=== PATIENT | male | born 1985 | race Caucasian/White ===

== ENCOUNTER 2017-10-29 07:13 | Emergency (ER) | payer OTHER ==
[~2017-10-29] VITALS: Ht 172.7 cm; Wt 62.7 kg
[~2017-10-29 07:13] MED LIST: AMOXICILLIN 50500 MG PO; CEPHALEXIN500 M1 PO; FLEXERIL 1010 MG/TAB PO; LORTAB 5/500 501 TAB PO; MEDROL 4MG DOSPA4 MG PO; MULTI VITAMINS1 TAB PO; NAPROSYN500 MG PO; NO HOME MEDICATIONS; NORCO 325 MG-51 TAB; NORCO 325 MG-51 TAB PO; NORCO 325 MG-7.1 TAB PO; PEN-VEE K500 MG PO; ULTRAM 50MG TAB50 MG PO
[2017-10-29 07:15] VITALS: BP 146/88; TEMP 97.7
[2017-10-29 08:07] VITALS: PULSE 99
== END 2017-10-29 08:07 | disposition home or self-care (01) ==
LOC: COL.ER 07:13
DX: S61.012A Laceration without foreign body of left thumb without damage to nail, initial encounter (principal); F17.210 Nicotine dependence, cigarettes, uncomplicated; W26.8XXA Contact with other sharp object(s), not elsewhere classified, initial encounter

== ENCOUNTER 2019-01-10 15:19 | Emergency (ER) | payer OTHER ==
[~2019-01-10] VITALS: Ht 172.7 cm; Wt 62.7 kg
[2019-01-10 15:36] VITALS: BP 125/72; TEMP 98.2
[2019-01-10] MEDS ORDERED: NAPROSYN500 MG PO (15:36)
[2019-01-10] MEDS ORDERED: NORCO 325 MG-51 TAB PO (16:15)
[2019-01-10] MEDS ORDERED: MEDROL 4MG DOSPA4 MG PO (16:15)
[2019-01-10 16:31] VITALS: PULSE 100
== END 2019-01-10 16:31 | disposition home or self-care (01) ==
LOC: COL.ER 15:19
DX: S43.401A Unspecified sprain of right shoulder joint, initial encounter (principal); F17.210 Nicotine dependence, cigarettes, uncomplicated; Z88.5 Allergy status to narcotic agent; X50.0XXA Overexertion from strenuous movement or load, initial encounter; Y92.59 Other trade areas as the place of occurrence of the external cause

== ENCOUNTER 2020-09-04 19:09 | Observation (INO) | payer SELFPAY ==
[~2020-09-04] VITALS: Ht 172.7 cm; Wt 65.0 kg
[2020-09-04] VITALS (125 sets, daily range): BP systolic 111–120; BP diastolic 69–78; PULSE 93–104; TEMP 97.2; O2SAT 92–97
[2020-09-04 19:46] LABS: ALANINE AMINOTRANSFERASE 20 U/L (4-49); ALCOHOL(ethanol),MEDICAL 265 mg/dL; ALKALINE PHOSPHATASE 66 U/L (50-136); ANION GAP 12 mmol/L (7-16); AST,SGOT 43 U/L (15-37); BILIRUBIN,TOTAL 0.2 mg/dL (0.0-1.0); BLOOD UREA NITROGEN 8 mg/dL (9-20); CALCIUM 8.1 mg/dL (8.4-10.2); CARBON DIOXIDE 23 mmol/L (22-30); CHLORIDE 105 mmol/L (98-107); CREATININE, serum 0.86 (0.66-1.25); GLUCOSE 101 mg/dL (74-106); LIPASE 299 U/L (23-300); MAGNESIUM 2.2 mg/dL (1.6-2.3); POTASSIUM 3.4 mmol/L (3.4-5.0); SODIUM 139 mmol/L (137-145); TOTAL PROTEIN 6.7 gm/dL (6.4-8.2)
[2020-09-04 19:48] LABS: SALICYLATE < 1.0 mg/dL
[2020-09-04 19:52] LABS: BASO % 0.7 % (0.0-2.0); EOS % 0.2 % (0-4.0); GRAN # 3.6 (1.4-6.5); HEMATOCRIT 39.7 % (42.0-52.0); HEMOGLOBIN 13.8 g/dl (13.5-18.0); LYMPH # 1.4 (1.2-3.4); LYMPH % 25.3 % (20.0-51.0); MEAN CELL VOLUME 94 fl (80.0-100.0); MEAN CORPUSCULAR HEMOGLOBIN 33 pg (27.0-31.0); MEAN CORPUSCULAR HGB CONC 35 g/dl (33.0-37.0); MEAN PLATELET VOLUME 8.9 fl (7.4-10.4); MONO # 0.5 (0.1-0.6); MONO % 9.6 % (1.7-9.3); PLATELET COUNT 226 K/mm3 (130-400); RED BLOOD COUNT 4.23 M/mm3 (4.20-5.60); REDCELL DISTRIBUTION WIDTH-CV 12.3 % (11.5-14.5)
[2020-09-04 19:55] LABS: INR 0.9 (0.8-3.0)
[2020-09-04 19:57] LABS: TROPONIN-I < 0.012 ng/mL (0.000-0.035)
[2020-09-04 20:59] LABS: COLLECTION METHOD CLEAN CATCH
[2020-09-04 21:10] LABS: PH 6 (5-8); SQUAMOUS EPITHELIAL None Seen /hpf; URINE APPEARANCE Clear; URINE BACTERIA None Seen /hpf; URINE BILIRUBIN Negative (NEGATIVE); URINE BLOOD Negative (NEGATIVE); URINE COLOR Straw; URINE GLUCOSE Negative (NEGATIVE); URINE KETONE Negative (NEGATIVE); URINE LEUKOCYTE ESTERASE Negative (NEGATIVE); URINE NITRATE Negative (NEGATIVE); URINE PROTEIN(semi-quant) Negative (NEGATIVE); URINE RBC 0-2 /hpf; URINE UROBILINOGEN Negative (NEGATIVE)
[2020-09-04 21:15] LABS: TRICYCLIC ANTIDEPRESS URINE POSITIVE
--- NOTE | 2020-09-04 21:21 | NUR ---
Patient arrived to ICU 5 at 2105. Assessment complete and charted. Patient alert to self, following directions and answering simple questions only. Patient has pin point pupils-reactive. Patient on suicide precautions- sweep done per protocol. Patient currently on ICU monitoring. Has IVF running at 200ml/hr per verbal order from YOGESH Harrell. Attempted to complete Med rec. However patients next of kin listed, Emily, is currently admitted to this hospital also per patient Aunt Petros. Per Petros, reports she spoke with ED doctor earlier in evening, and provided ED doctor information needed. "As far as family knows, patient is not on any prescription medications, but not completely sure." Patient in bed with bed alarms on, in hollingsworth gown.
--- NOTE | 2020-09-04 21:30 | NUR ---
Brien for posion control called to review labs and EKG. Would like tylenol level ordered. Will check with YOGESH Harrell
--- NOTE | 2020-09-04 23:56 | NUR ---
Posion controlled called for updates. Updated provided. Suggested watch for seizure activity with ingestion of seroquel. Will follow up in AM
[2020-09-05] VITALS (618 sets, daily range): BP systolic 104–124; BP diastolic 60–85; PULSE 73–100; TEMP 97.5–98; O2SAT 85–98
--- NOTE | 2020-09-05 00:03 | NUR ---
Resting in bed asleep. Follows commands for assessment. Alert to self. Mubbled speech. IV site left AC, CDI.
--- NOTE | 2020-09-05 04:01 | NUR ---
Assessment complete and charted. Patient more alert. Able to state place, time, and name/. Provided with water at this time.
[2020-09-05 06:01] LABS: BASO % 0.7 % (0.0-2.0); EOS # 0.1 (0.0-0.7); EOS % 1.5 % (0-4.0); GRAN # 2.6 (1.4-6.5); GRAN % 57.3 % (42.2-75.2); HEMOGLOBIN 12.2 g/dl (13.5-18.0); LYMPH # 1.3 (1.2-3.4); LYMPH % 29.2 % (20.0-51.0); MEAN CELL VOLUME 98 fl (80.0-100.0); MEAN CORPUSCULAR HEMOGLOBIN 33 pg (27.0-31.0); MEAN CORPUSCULAR HGB CONC 34 g/dl (33.0-37.0); MONO # 0.5 (0.1-0.6); MONO % 11.1 % (1.7-9.3); PLATELET COUNT 184 K/mm3 (130-400); RED BLOOD COUNT 3.68 M/mm3 (4.20-5.60); REDCELL DISTRIBUTION WIDTH-CV 12.6 % (11.5-14.5)
[2020-09-05 06:12] LABS: HEMATOCRIT 35.9 % (42.0-52.0)
[2020-09-05 06:16] LABS: CALCIUM 7.1 mg/dL (8.4-10.2); CREATININE, serum 0.8 (0.66-1.25); MAGNESIUM 1.9 mg/dL (1.6-2.3); POTASSIUM 3.7 mmol/L (3.4-5.0)
--- NOTE | 2020-09-05 06:29 | NUR ---
Patient on suicide precautions throughout night. Increased alertness this morning. Reports "yesterday is a blur." Wanting to know how long admission would be required. Educated patient regarding physician rounding this AM. Denies questions. Patient asked to urinate. Denied need to urinate. Bladder scanned, 585. After bladder was scanned patient reported need to urinate. Patient urinated 600ml of dark yellow clear urine.
--- NOTE | 2020-09-05 07:14 | NUR ---
Report given to TOÑA Smith
--- NOTE | 2020-09-05 07:30 | NUR ---
Upon entering PT room this am for introduction, PT opened his eyes looked at nurses and turned away and gave a thumbs up. No verbal communication was given.
--- NOTE | 2020-09-05 08:03 | NUR ---
During morning assessment, PT agrees to eat breakfast and to let an assessment to be performed. PT refuses lovenox as he does not want a shot. When asked whye he was in hospital, PT states, "becaue I OD's", when asked about what he said to his sister in a text. PT mumbled and did not continue to answer. PT appears to have a good appetite. Q15 minute checks continue.
--- NOTE | 2020-09-05 08:48 | NUR ---
pt DENIES suicidal ideation this am.
--- NOTE | 2020-09-05 13:14 | NUR ---
First visit from the analytical data scientist. Chaplain thompsond for patient while standing outside their door.
--- NOTE | 2020-09-05 17:45 | NUR ---
PT given education, IV discontinued and patient removed from monitor. PT changes clothes on own accord and does not have any questions at this time. PT aunt is at ED door to pickle processor PT. PT walks with steady gait and thanks us for his care. PT discharged at 1745
== END 2020-09-05 17:45 | disposition home or self-care (01) ==
LOC: COL.ER 19:09 → ICU 20:25
PROVIDERS: Emergency Medicine; Student in an Organized Health Care Education/Training Program; ADMIT Family Medicine
DX: T43.502A Poisoning by unspecified antipsychotics and neuroleptics, intentional self-harm, initial encounter (principal); F10.129 Alcohol abuse with intoxication, unspecified; F32.9 Major depressive disorder, single episode, unspecified; R45.851 Suicidal ideations; R41.82 Altered mental status, unspecified; E87.2 Acidosis; M54.9 Dorsalgia, unspecified; G40.909 Epilepsy, unspecified, not intractable, without status epilepticus; C85.90 Non-Hodgkin lymphoma, unspecified, unspecified site; G89.29 Other chronic pain; F17.210 Nicotine dependence, cigarettes, uncomplicated; Z79.899 Other long term (current) drug therapy; Z79.891 Long term (current) use of opiate analgesic; Z88.5 Allergy status to narcotic agent
CPT/HCPCS: 99223-AI; G0378; J2310; J3411; J7030

== ENCOUNTER 2020-10-19 09:09 | Emergency (ER) | payer SELFPAY ==
[~2020-10-19] VITALS: Ht 172.7 cm; Wt 61.4 kg
[2020-10-19 09:21] VITALS: BP 111/61; PULSE 98; TEMP 98.7
[2020-10-19] MEDS ORDERED: TESSALON P100 MG/CAP PO (10:58)
[2020-10-19] MEDS ORDERED: ZITHROMAX Z PA250 MG PO (10:58)
== END 2020-10-19 11:18 | disposition home or self-care (01) ==
LOC: COL.ER 09:09
DX: J06.9 Acute upper respiratory infection, unspecified (principal); F17.210 Nicotine dependence, cigarettes, uncomplicated; Z20.822 Contact with and (suspected) exposure to COVID-19

== ENCOUNTER 2020-10-24 10:12 | Emergency (ER) | payer SELFPAY ==
[~2020-10-24] VITALS: Ht 172.7 cm; Wt 59.5 kg
[~2020-10-24 10:12] MED LIST changes: +TESSALON P100 MG/CAP PO; +ZITHROMAX Z PA250 MG PO
[2020-10-24 10:21] VITALS: BP 130/82; TEMP 98.5
[2020-10-24 10:36] VITALS: PULSE 84
== END 2020-10-24 10:36 | disposition home or self-care (01) ==
LOC: COL.ER 10:12
DX: B34.9 Viral infection, unspecified (principal); F17.210 Nicotine dependence, cigarettes, uncomplicated

== ENCOUNTER 2021-01-26 12:43 | Emergency (ER) | payer SELFPAY ==
[~2021-01-26] VITALS: Ht 172.7 cm; Wt 62.7 kg
[2021-01-26] MEDS ORDERED: PEN-VEE K500 MG PO (13:13)
[2021-01-26 13:20] VITALS: BP 120/80; PULSE 80
== END 2021-01-26 13:24 | disposition home or self-care (01) ==
LOC: COL.ER 12:43
DX: K04.7 Periapical abscess without sinus (principal); F17.210 Nicotine dependence, cigarettes, uncomplicated; Z88.6 Allergy status to analgesic agent

== ENCOUNTER 2021-07-05 12:42 | Emergency (ER) | payer SELFPAY ==
[~2021-07-05] VITALS: Ht 172.7 cm; Wt 65.9 kg
[2021-07-05 12:56] VITALS: BP 135/78; PULSE 101; TEMP 98.5
== END 2021-07-05 13:50 | disposition home or self-care (01) ==
LOC: COL.ER 12:42
DX: S93.602A Unspecified sprain of left foot, initial encounter (principal); F17.210 Nicotine dependence, cigarettes, uncomplicated; Z88.5 Allergy status to narcotic agent; X58.XXXA Exposure to other specified factors, initial encounter; Y93.01 Activity, walking, marching and hiking

== ENCOUNTER 2021-07-19 08:49 | Emergency (ER) | payer SELFPAY ==
[~2021-07-19] VITALS: Ht 172.7 cm; Wt 65.9 kg
[2021-07-19 09:18] VITALS: TEMP 98.2
[2021-07-19] MEDS ORDERED: IBU400 MG PO (10:04)
[2021-07-19] MEDS ORDERED: PERCOCET 325 MG1 TA2 PO (10:30)
[2021-07-19 11:16] VITALS: BP 125/85; PULSE 91
== END 2021-07-19 11:20 | disposition home or self-care (01) ==
LOC: COL.ER 08:49
DX: S22.20XA Unspecified fracture of sternum, initial encounter for closed fracture (principal); Z72.0 Tobacco use; W18.30XA Fall on same level, unspecified, initial encounter

== ENCOUNTER 2021-09-30 10:40 | Emergency (ER) | payer SELFPAY ==
[~2021-09-30] VITALS: Ht 172.7 cm; Wt 65.9 kg
[~2021-09-30 10:40] MED LIST changes: +IBU400 MG PO; +PERCOCET 325 MG1 TA2 PO
[2021-09-30 10:46] VITALS: TEMP 97.6
[2021-09-30] MEDS ORDERED: ZITHROMAX Z PA250 MG PO (10:56)
[2021-09-30 10:58] VITALS: BP 128/83; PULSE 94
== END 2021-09-30 10:58 | disposition home or self-care (01) ==
LOC: COL.ER 10:40
DX: J20.9 Acute bronchitis, unspecified (principal); F17.210 Nicotine dependence, cigarettes, uncomplicated; Z28.310 Unvaccinated for COVID-19

== ENCOUNTER 2022-02-26 15:28 | Emergency (ER) | payer SELFPAY ==
[~2022-02-26] VITALS: Ht 172.7 cm; Wt 65.9 kg
[2022-02-26 15:43] VITALS: TEMP 98.1
[2022-02-26] MEDS ORDERED: AMOXICILLIN 50500 MG PO (17:16)
[2022-02-26] MEDS ORDERED: PERCOCET 325 MG1 TA2 PO (17:16)
[2022-02-26 17:30] VITALS: BP 131/71; PULSE 81
== END 2022-02-26 17:30 | disposition home or self-care (01) ==
LOC: COL.ER 15:28
DX: K02.9 Dental caries, unspecified (principal); Z28.310 Unvaccinated for COVID-19; Z88.5 Allergy status to narcotic agent

== ENCOUNTER 2022-09-04 14:10 | Emergency (ER) | payer BC ==
[~2022-09-04] VITALS: Ht 172.7 cm; Wt 68.2 kg
[~2022-09-04 14:10] MED LIST changes: +NAPRELAN500 MG PO
[2022-09-04 14:15] VITALS: BP 149/80; PULSE 92; TEMP 98.2
[2022-09-04] MEDS ORDERED: AMOXICILLIN 50500 MG PO (15:42)
== END 2022-09-04 15:49 | disposition home or self-care (01) ==
LOC: COL.ER 14:10
DX: K02.9 Dental caries, unspecified (principal); F17.200 Nicotine dependence, unspecified, uncomplicated; Z28.310 Unvaccinated for COVID-19